=== PATIENT | female | born 1950 | race Caucasian/White ===

== ENCOUNTER 2017-10-31 06:05 | Day surgery (SDC) | payer OTHER ==
[~2017-10-31] VITALS: Ht 162.6 cm; Wt 78.2 kg
[2017-10-31 06:32] LABS: HEMATOCRIT 40.8 % (36.0-46.0); HEMOGLOBIN 13.1 G/DL (11.9-15.5); MCHC 32.1 G/DL (30.0-36.0); MCV 93.4 FL (83-99); PLATELET COUNT 335 K/uL (156-360); RBC DIS.WIDTH-CV 12.5 % (11.8-14.6); RBC DIS.WIDTH-SD 43.3 % (39-53); RED BLOOD COUNT 4.37 M/uL (3.80-5.20); WHITE BLOOD COUNT 11.6 K/uL (4.1-10.2)
[2017-10-31 06:39] LABS: APPEARANCE CLEAR ((CLEAR)); BILIRUBIN NEGATIVE; BLOOD NEGATIVE; COLOR YELLOW ((YELLOW)); GLUCOSE (STRIP) NEGATIVE; KETONES NEGATIVE; LEUKOCYTES NEGATIVE; NITRITE NEGATIVE; PROTEIN (STRIP) NEGATIVE; SPECIFIC GRAVITY 1.018 (1.000-1.030); UCUL ADDED? NO; UROBILINOGEN 0.2 MG/DL (0.2-1.0)
[2017-10-31 07:21] LABS: ALBUMIN 4.6 G/DL (3.2-4.8); ALKALINE PHOSPHATASE 56 IU/L (3-129); ALT (GPT) 14 IU/L (3-49); AST (GOT) 15 IU/L (2-34); CHLORIDE 105 MEQ/L (99-109); CREATININE 0.7 MG/DL (0.6-1.3); GFR ESTIMATE (CALCULATED) > 59 mL/min/; GLUCOSE 110 mg/dL (70-99); LIPASE 6 U/L (1.0-51.0); POTASSIUM 3.5 MEQ/L (3.7-5.4); SODIUM 140 MEQ/L (136-147); TOTAL BILIRUBIN 0.5 MG/DL (0.0-1.0); TOTAL PROTEIN 7.9 G/DL (6.4-8.3); UREA NITROGEN (BUN) 13 mg/dL (9-23)
[2017-10-31] MEDS ORDERED: RANITIDINE HCL150 MG PO (09:44)
[2017-10-31] MEDS ORDERED: LIVALO2 MG PO (09:45)
[2017-10-31] MEDS ORDERED: CYANOCOBALAM1000 MCG PO (09:45)
[2017-10-31] MEDS ORDERED: FENOFIBRIC ACI135 MG PO (09:45)
[2017-10-31] MEDS ORDERED: PROAIR HFA8.5 GM IH (09:45)
[2017-10-31] MEDS ORDERED: MULTI VITAMIN1 EACH PO (09:46)
[2017-10-31] MEDS ORDERED: CALCIUM600 M1 PO (09:46)
[2017-10-31] MEDS ORDERED: VITAMIN D31000 UNI2 PO (09:46)
[2017-10-31] MEDS ORDERED: DILAUDID4 MG PO (13:12)
[2017-10-31] MEDS ORDERED: ONDANSETRON HCL8 MG PO (13:12)
[2017-10-31] MEDS ORDERED: COLACE100 MG PO (13:12)
[2017-10-31 14:55] VITALS: BP 117/56
[2017-10-31 16:06] VITALS: BP 94/52
[2017-10-31 16:50] VITALS: BP 108/55
== END 2017-10-31 17:00 | disposition home or self-care (01) ==
LOC: EME 06:05 → SDC 11:08 → EME 11:08 → SDC 17:00
DX: K35.80 Unspecified acute appendicitis (principal); K21.9 Gastro-esophageal reflux disease without esophagitis; E78.00 Pure hypercholesterolemia, unspecified; K66.0 Peritoneal adhesions (postprocedural) (postinfection)
CPT/HCPCS: 71046; 74177; 80053; 81003; 83690; 85027; 88304; 93005; J0330; J1170; J2270; J2405; J2543; J2710; J3010; J7030; J7050